=== PATIENT | male | born 1990 | race Caucasian/White ===

== ENCOUNTER 2019-10-27 22:16 | Emergency (ER) | payer OTHER ==
[~2019-10-27] VITALS: Ht 177.8 cm; Wt 87.0 kg
[~2019-10-27 22:16] MED LIST: AMOX1TAB64 PO; HYDR-3241 PO; No meds per pt.; OXYC-302 PO; OXYC1TAB8 PO; PROM25TA10 PO
--- NOTE | 2019-10-27 22:25 | NUR ---
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
--- NOTE | 2019-10-27 23:01 | NUR ---
pt report CP that started today. sternal, non radiating. pain 08/02. denies nausea. denies cardiac history. c/o some SOB. pt attached to all monitors and all questions answered.
[2019-10-27 23:07] LABS: BASOPHILS # (AUTO) 0.03 x10^3/uL (0-0.1); BASOPHILS % (AUTO) 0 % (0-1); EOSINOPHILS # (AUTO) 0.07 x10^3/uL (0-0.4); EOSINOPHILS % (AUTO) 1 % (1-7); LYMPHOCYTES # (AUTO) 1.55 x10^3/uL (1-3.4); LYMPHOCYTES % (AUTO) 25 % (22-44); MD NO; MEAN CORPUSCULAR HEMOGLOBIN 30.8 pg (27.5-34.5); MEAN CORPUSCULAR HGB CONC 33.8 g/dL (33.2-36.2); MEAN PLATELET VOLUME 9.5 fL (7.4-10.4); MONOCYTES # (AUTO) 0.37 x10^3/uL (0.2-0.8); MONOCYTES % (AUTO) 6 % (2-9); NEUTROPHILS # (AUTO) 4.15 x10^3/uL (1.8-6.8); NEUTROPHILS % (AUTO) 67 % (42-75); PLATELET COUNT 236 x10^3/uL (130-400); RED CELL DISTRIBUTION WIDTH 13.8 % (9.4-14.8)
[2019-10-27 23:16] LABS: ALANINE AMINOTRANSFERASE 36 U/L (12-78); ALBUMIN 4.2 g/dL (3.4-5.0); ANION GAP 7 mmol/L (5-15); CHLORIDE 107 mmol/L (98-107); CREATININE 0.89 mg/dL (0.7-1.3)
[2019-10-27 23:20] LABS: ALKALINE PHOSPHATASE 108 U/L (45-117); BILIRUBIN,TOTAL 0.8 mg/dL (0.2-1.0); TOTAL PROTEIN 7.6 g/dL (6.4-8.2); TROPONIN I < 0.015 ng/mL (0.000-0.045)
[2019-10-27 23:49] VITALS: BP 139/98
== END 2019-10-28 00:33 | disposition home or self-care (01) ==
LOC: ED 23:44
DX: R07.89 Other chest pain (principal); R94.31 Abnormal electrocardiogram [ECG] [EKG]; F17.200 Nicotine dependence, unspecified, uncomplicated; Z90.89 Acquired absence of other organs
CPT/HCPCS: 36415; 71045; 80053; 83690; 84484; 85025; 93005; 99285